=== PATIENT | female | born 1970 | race Caucasian/White ===

== ENCOUNTER 2022-05-01 03:54 | Inpatient (IN) | payer OTHER ==
[2022-04-29 11:38] VITALS: BMI 43.2
[2022-05-01] MEDS ORDERED: ceFAZolin SODIUM 1 GM VIAL ONE (06:54)
[2022-05-01] MEDS ORDERED: BUPIVACAINE HCL/PF 0.25% (2.5MG/ML) 10 ML VIAL ONE ×3 (07:27→07:28)
[2022-05-01] MEDS ORDERED: BUPIVACAINE LIPOSOME/PF (EXPAREL) 266 MG/20 ML VIAL ONE (07:27)
[2022-05-01] MEDS ORDERED: MIDAZOLAM HCL 2 MG/2 ML SINGLE DOSE VIAL ONE ×2 (07:29→07:31)
[2022-05-01] MEDS ORDERED: FENTANYL CITRATE/PF 50 MCG/ML VIAL ONE ×9 (07:29→12:55)
[2022-05-01] MEDS ORDERED: ACETAMINOPHEN 1000 MG/100 ML BAG IVPB ONE (07:30)
[2022-05-01] MEDS ORDERED: TRANEXAMIC ACID 1000 MG/10 ML VIAL IVPUSH ONE (07:30)
[2022-05-01] MEDS ORDERED: PHENAZOPYRIDINE HCL 100 MG TABLET (FP) PO ONE (07:30)
[2022-05-01] MEDS ORDERED: GABAPENTIN 300 MG CAPSULE PO ONE (07:30)
[2022-05-01] MEDS ORDERED: CEFAZOLIN 2 GM in DEXTROSE 5%-WATER - 100 ML IVPB ONE (07:30)
[2022-05-01] MEDS ORDERED: PROPOFOL 20 ML ONE ×2 (07:52)
[2022-05-01] MEDS ORDERED: GLYCOPYRROLATE 0.2 MG/1 ML VIAL ONE ×2 (07:53→09:41)
[2022-05-01] MEDS ORDERED: ONDANSETRON 4 MG/2 ML VIAL ONE (07:53)
[2022-05-01] MEDS ORDERED: DEXAMETHASONE SOD PHOSPHATE 4 MG/1 ML VIAL ONE (07:53)
[2022-05-01] MEDS ORDERED: ROCURONIUM BROMIDE 50 MG/5 ML SYRINGE ONE (07:54)
[2022-05-01] MEDS ORDERED: ceFAZolin SODIUM 1 GM VIAL IVPB ONE (08:39)
[2022-05-01] MEDS ORDERED: KETAMINE HCL 500 MG/10 ML VIAL ONE (08:44)
[2022-05-01] MEDS ORDERED: KETOROLAC TROMETHAMINE 30 MG/1 ML VIAL ONE (09:02)
[2022-05-01] MEDS ORDERED: NEOSTIGMINE METHYLSULFATE 0.5 MG/1 ML - 10 ML MDV ONE (09:41)
[2022-05-01] MEDS ORDERED: ONDANSETRON 4 MG/2 ML VIAL IVPUSH PRN (10:26)
[2022-05-01] MEDS ORDERED: DOCUSATE SODIUM 100 MG CAPSULE (FP) PO PRN (10:26)
[2022-05-01] MEDS ORDERED: oxyCODONE HCL 5 MG TABLET PO PRN ×2 (10:26)
[2022-05-01] MEDS: LACTATED RINGERS SOLUTION 1,000 ML IV SCH ×2 (12:58→21:00)
[2022-05-01] MEDS ORDERED: CEFAZOLIN 1 GM/D5W 1 GM/50 ML BAG IVPB SCH (16:30)
[2022-05-01] MEDS: CEFAZOLIN 1 GM in DEXTROSE 5%-WATER - 50 ML IVPB SCH (17:00)
[2022-05-01] MEDS: IBUPROFEN 800 MG/8 ML IJ IVPB SCH (17:31)
[2022-05-01] MEDS ORDERED: ACETAMINOPHEN 325 MG TABLET (FP) PO PRN (18:00)
[2022-05-01 21:26] LABS: HEMATOCRIT 40.8 % (32.4-45.2); HEMOGLOBIN 13.2 GM/dL (10.7-15.3); MCH 27.1 pg (25.7-33.7); MCHC 32.2 g/dl (32.0-36.0); PLATELET COUNT 267 10^3/uL (134-434); RBC 4.86 M/mm3 (3.60-5.2); RDW 15.7 % (11.6-15.6); WHITE BLOOD COUNT 11.8 K/mm3 (4.0-10.0)
[2022-05-01 22:15] LABS: CALCIUM 9.2 mg/dL (8.5-10.1)
[2022-05-01 22:19] LABS: CREATININE 0.6 mg/dL (0.55-1.3)
[2022-05-01 23:14] VITALS: RESP 18
[2022-05-02] MEDS: CEFAZOLIN 1 GM in DEXTROSE 5%-WATER - 50 ML IVPB SCH (01:10)
[2022-05-02] MEDS: IBUPROFEN 800 MG/8 ML IJ IVPB SCH ×2 (01:53→09:11)
[2022-05-02 07:20] LABS: HEMATOCRIT 35.9 % (32.4-45.2); HEMOGLOBIN 11.9 GM/dL (10.7-15.3); MCH 27.6 pg (25.7-33.7); MEAN CELL VOLUME 83.5 fl (80-96); MEAN PLT VOLUME 9.9 fl (7.5-11.1); PLATELET COUNT 261 10^3/uL (134-434); RDW 15.7 % (11.6-15.6); WHITE BLOOD COUNT 11.5 K/mm3 (4.0-10.0)
[2022-05-02 07:43] LABS: CALCIUM 8.9 mg/dL (8.5-10.1)
[2022-05-02 07:44] LABS: BLOOD UREA NITROGEN 10.7 mg/dL (7-18)
[2022-05-02 07:47] LABS: CREATININE 0.7 mg/dL (0.55-1.3)
[2022-05-02] MEDS: ENOXAPARIN NA (PORCINE) 40 MG/0.4 ML DISP.SYRIN SQ SCH (09:10)
[2022-05-02] MEDS: ACETAMINOPHEN 500 MG TABLET (FP) PO SCH ×2 (10:52→17:23)
[2022-05-02] MEDS: ONDANSETRON 4 MG/2 ML VIAL IVPUSH PRN (14:50)
[2022-05-02] MEDS: IBUPROFEN 600 MG TABLET (FP) PO SCH ×2 (14:50→21:19)
[2022-05-02] MEDS: SIMETHICONE 80 MG TAB.CHEW (FP) PO PRN (17:25)
[2022-05-02] MEDS: BISACODYL 5 MG TABLET.DR (FP) PO PRN (19:56)
[2022-05-03] MEDS: ACETAMINOPHEN 500 MG TABLET (FP) PO SCH ×3 (02:00→18:04)
[2022-05-03] MEDS: IBUPROFEN 600 MG TABLET (FP) PO SCH ×4 (02:30→21:21)
[2022-05-03] MEDS: SIMETHICONE 80 MG TAB.CHEW (FP) PO PRN ×3 (05:13→15:46)
[2022-05-03] MEDS ORDERED: BISACODYL 10 MG SUPP.RECT PR STA (09:44)
[2022-05-03] MEDS: ENOXAPARIN NA (PORCINE) 40 MG/0.4 ML DISP.SYRIN SQ SCH (09:45)
[2022-05-03] MEDS: BISACODYL 5 MG TABLET.DR (FP) PO PRN (11:06)
[2022-05-03] MEDS: ONDANSETRON 4 MG/2 ML VIAL IVPUSH PRN ×3 (12:20→20:30)
[2022-05-03] MEDS ORDERED: BISACODYL 10 MG SUPP.RECT PR ONE (19:15)
[2022-05-04] MEDS: ACETAMINOPHEN 500 MG TABLET (FP) PO SCH (03:36)
[2022-05-04 09:37] VITALS: BP 135/81; PULSE 123; TEMP 98.3
[2022-05-04 09:41] LABS: BASO % 0.4 % (0-2.0); EOS % 0.1 % (0-4.5); HEMATOCRIT 36.4 % (32.4-45.2); HEMOGLOBIN 11.8 GM/dL (10.7-15.3); LYMPH % 25.5 % (8-40); MCH 27.2 pg (25.7-33.7); MCHC 32.4 g/dl (32.0-36.0); MEAN PLT VOLUME 10.4 fl (7.5-11.1); MONO % 7.8 % (3.8-10.2); NEUT % 66.2 % (42.8-82.8); PLATELET COUNT 284 10^3/uL (134-434); RBC 4.33 M/mm3 (3.60-5.2); RDW 15.9 % (11.6-15.6); WHITE BLOOD COUNT 8.8 K/mm3 (4.0-10.0)
[2022-05-04] MEDS: ENOXAPARIN NA (PORCINE) 40 MG/0.4 ML DISP.SYRIN SQ SCH (09:56)
[2022-05-04 10:07] LABS: CALCIUM 9.1 mg/dL (8.5-10.1)
[2022-05-04 10:08] LABS: BLOOD UREA NITROGEN 11.8 mg/dL (7-18)
[2022-05-04 10:11] LABS: CREATININE 0.7 mg/dL (0.55-1.3)
[2022-05-04] MEDS ORDERED: IBUPROFEN 600 MG TABLET (FP) PO PRN (14:59)
[2022-05-04] MEDS ORDERED: ACETAMINOPHEN 500 MG TABLET (FP) PO PRN (15:00)
[2022-05-04] MEDS: SIMETHICONE 80 MG TAB.CHEW (FP) PO PRN (17:21)
[2022-05-04] MEDS ORDERED: FAMOTIDINE 20 MG TABLET PO SCH (22:00)
== END 2022-05-04 19:40 | disposition home or self-care (01) | DRG 519 ==
LOC: J2C 03:54 → J3W 13:31
PROVIDERS: ADMIT Obstetrics & Gynecology; ATTEND Obstetrics & Gynecology
PROC: 0UT70ZZ Resection of Bilateral Fallopian Tubes, Open Approach (ICD-10-PCS; 2022-05-01)
PROC: 0UT90ZZ Resection of Uterus, Open Approach (ICD-10-PCS; principal; 2022-05-01 07:30)
DX: D25.9 Leiomyoma of uterus, unspecified (principal)
CPT/HCPCS: 36415; 74018-TC-FY; 80048; 81025; 85025; 85027; 86850; 86900; 86901; 88302-TC; 88307-TC; 94010; 94760; C9803-CS; U0003; U0005

== ENCOUNTER 2024-03-10 17:49 | Inpatient (IN) | payer OTHER ==
[2024-03-10] MEDS ORDERED: ACETAMINOPHEN 500 MG TABLET (FP) ONE (20:06)
[2024-03-10] MEDS: ACETAMINOPHEN 500 MG TABLET (FP) PO ONE (20:47)
[2024-03-10 20:48] LABS: BASO % 0.6 % (0-2.0); EOS % 1.8 % (0-4.5); HEMATOCRIT 38.7 % (32.4-45.2); HEMOGLOBIN 12.7 GM/dL (10.7-15.3); LYMPH % 40.1 % (8-40); MCH 28.1 pg (25.7-33.7); MCHC 32.8 g/dl (32.0-36.0); MEAN CELL VOLUME 85.5 fl (80-96); MEAN PLT VOLUME 10.6 fl (7.5-11.1); MONO % 6.1 % (3.8-10.2); NEUT % 51.4 % (42.8-82.8); PLATELET COUNT 204 10^3/uL (134-434); RBC 4.53 M/mm3 (3.60-5.2); RDW 14.4 % (11.6-15.6)
[2024-03-10 21:01] LABS: PROTHROMBIN TIME (PATIENT) 11.3 SEC (9.7-13.0)
[2024-03-10 21:04] LABS: ACTIVATED PTT 33.3 SECONDS (25.2-36.5)
[2024-03-10 21:07] LABS: POTASSIUM 3.9 mmol/L (3.5-5.1)
[2024-03-10 21:10] LABS: CALCIUM 9.3 mg/dL (8.5-10.1)
[2024-03-10 21:11] LABS: ALBUMIN 3.6 g/dl (3.4-5.0); BLOOD UREA NITROGEN 13.3 mg/dL (7-18)
[2024-03-10 21:14] LABS: CREATININE 0.9 mg/dL (0.55-1.3)
[2024-03-10 21:15] LABS: BILIRUBIN,TOTAL 0.4 mg/dL (0.2-1); TOT PROT 6.6 g/dl (6.4-8.2)
[2024-03-10 22:46] LABS: URINE APPEARANCE CLEAR; URINE BILIRUBIN NEGATIVE (NEGATIVE); URINE COLOR YELLOW; URINE GLUCOSE (UA) NEGATIVE (NEGATIVE); URINE KETONE NEGATIVE (NEGATIVE); URINE LEUK ESTERASE NEGATIVE (NEGATIVE); URINE NITRITE NEGATIVE (NEGATIVE); URINE PROTEIN NEGATIVE (NEGATIVE); URINE UROBILINOGEN 0.2 mg/dL (0.2-1.0)
[2024-03-10] MEDS ORDERED: MORPHINE SULFATE 2 MG/ML SYRINGE ONE (23:46)
[2024-03-10] MEDS ORDERED: PIPERACILLIN/TAZOB 4.5 GM 4.5 GM/100 ML BAG IVPB ONE (23:46)
[2024-03-10] MEDS: morphine CARPU-JECT 2 MG/1 ML DISP.SYRIN IVPUSH ONE (23:58)
[2024-03-10] MEDS: LACTATED RINGERS SOLUTION 1,000 ML/1,000 ML INFUS.BAG IV SCH (23:58)
[2024-03-10] MEDS: PIPERACILLIN/TAZOB 4.5 GM 4.5 GM in DEXTROSE 5%-WATER 100 ML IVPB ONE (23:58)
[2024-03-11] MEDS ORDERED: ACETAMINOPHEN 1000 MG/100 ML BAG IVPB PRN (03:00)
[2024-03-11] MEDS ORDERED: MORPHINE SULFATE 2 MG/ML SYRINGE ONE (06:37)
[2024-03-11] MEDS: MORPHINE SULFATE 2 MG/ML SYRINGE IVPUSH PRN (06:44)
[2024-03-11 07:22] LABS: BASO % 0.6 % (0-2.0); EOS % 2.6 % (0-4.5); HEMATOCRIT 36.6 % (32.4-45.2); HEMOGLOBIN 12.3 GM/dL (10.7-15.3); LYMPH % 51.6 % (8-40); MCH 28.7 pg (25.7-33.7); MCHC 33.6 g/dl (32.0-36.0); MEAN CELL VOLUME 85.6 fl (80-96); MEAN PLT VOLUME 10.6 fl (7.5-11.1); MONO % 6.9 % (3.8-10.2); NEUT % 38.3 % (42.8-82.8); PLATELET COUNT 181 10^3/uL (134-434); RBC 4.27 M/mm3 (3.60-5.2); RDW 14.1 % (11.6-15.6); WHITE BLOOD COUNT 5.9 K/mm3 (4.0-10.0)
[2024-03-11 07:36] LABS: POTASSIUM 3.9 mmol/L (3.5-5.1)
[2024-03-11 07:39] LABS: CALCIUM 8.6 mg/dL (8.5-10.1)
[2024-03-11 07:40] LABS: BLOOD UREA NITROGEN 10.9 mg/dL (7-18)
[2024-03-11 07:43] LABS: CREATININE 0.7 mg/dL (0.55-1.3)
[2024-03-11] MEDS ORDERED: PIPERACILLIN/TAZOB 3.375 GM 3.375 GM in DEXTROSE 5%-WATER - 50 ML IVPB SCH ×2 (12:00→18:00)
[2024-03-11] MEDS: ENOXAPARIN NA (PORCINE) 40 MG/0.4 ML DISP.SYRIN SQ SCH (13:52)
[2024-03-11] MEDS: PIPERACILLIN/TAZOB 3.375 GM 3.375 GM in DEXTROSE 5%-WATER - 50 ML IVPB SCH ×2 (13:52→14:51)
[2024-03-11] MEDS ORDERED: BUPIVACAINE HCL/PF 0.25% (2.5MG/ML) 10 ML VIAL ONE (16:12)
[2024-03-11] MEDS ORDERED: oxyCODONE HCL 5 MG TABLET PO PRN (16:33)
[2024-03-11] MEDS ORDERED: ONDANSETRON 4 MG/2 ML VIAL IVPUSH PRN ×2 (16:33→18:00)
[2024-03-11] MEDS ORDERED: MIDAZOLAM HCL 2 MG/2 ML SINGLE DOSE VIAL ONE (16:39)
[2024-03-11] MEDS ORDERED: PROPOFOL 20 ML ONE (16:39)
[2024-03-11] MEDS ORDERED: LACTATED RINGERS SOLUTION 1,000 ML IV SCH (16:45)
[2024-03-11] MEDS: BUPIVACAINE HCL/PF 0.25% (2.5MG/ML) 10 ML VIAL IJ ONE (17:10)
[2024-03-11] MEDS ORDERED: ONDANSETRON 4 MG/2 ML VIAL ONE (17:14)
[2024-03-11] MEDS ORDERED: ROCURONIUM BROMIDE 50 MG/5 ML SYRINGE ONE (17:14)
[2024-03-11] MEDS ORDERED: DEXAMETHASONE SOD PHOSPHATE 4 MG/1 ML VIAL ONE (17:14)
[2024-03-11] MEDS ORDERED: SUGAMMADEX SODIUM 200 MG/2 ML VIAL ONE (17:14)
[2024-03-11] MEDS: IBUPROFEN 600 MG TABLET (FP) PO SCH (18:18)
[2024-03-11] MEDS: LACTATED RINGERS SOLUTION 1,000 ML/1,000 ML INFUS.BAG IV SCH (18:31)
[2024-03-11] MEDS ORDERED: PIPERACILLIN/TAZOB 3.375 GM 50 ML IVPB SCH (18:43)
[2024-03-11] MEDS: ACETAMINOPHEN 500 MG TABLET (FP) PO SCH (19:55)
[2024-03-11] MEDS: PIPERACILLIN/TAZOB 3.375 GM 50 ML IVPB SCH (20:29)
[2024-03-11] MEDS: oxyCODONE HCL 5 MG TABLET PO PRN (20:40)
[2024-03-12] MEDS: ENOXAPARIN NA (PORCINE) 40 MG/0.4 ML DISP.SYRIN SQ SCH (09:43)
[2024-03-12 12:59] VITALS: BMI 34.8
[2024-03-12 14:22] VITALS: RESP 18
[2024-03-12] MEDS: LACTATED RINGERS SOLUTION 1,000 ML/1,000 ML INFUS.BAG IV SCH (17:09)
[2024-03-13 08:56] VITALS: BP 119/72; PULSE 82; TEMP 98.4
== END 2024-03-13 15:11 | disposition home or self-care (01) | DRG 225 ==
LOC: JER 17:49 → JERBED 22:54 → J6S 03-11 09:31
PROVIDERS: ADMIT Internal Medicine; ATTEND Family Medicine
PROC: 0DTJ0ZZ Resection of Appendix, Open Approach (ICD-10-PCS; principal; 2024-03-11 15:00)
DX: K35.80 Unspecified acute appendicitis (principal); K59.09 Other constipation
CPT/HCPCS: 36415; 74177-TC; 80048; 80053; 81003; 84703; 85025; 85610; 85730; 87086; 88304-TC; 93005; 93010; 94760; 99285-25; Q9967